=== PATIENT | male | born 1945 | race Caucasian/White ===

== ENCOUNTER → 2016-08-26 | Outpatient (CLI) | payer MEDICARE, BC | END | disposition home or self-care (01) | LOC: MW.CHPM 10:06 | PROVIDERS: ATTEND Anesthesiology | DX: Z51.81 Encounter for therapeutic drug level monitoring (principal); F11.20 Opioid dependence, uncomplicated; M33.20 Polymyositis, organ involvement unspecified; G89.29 Other chronic pain; Z79.891 Long term (current) use of opiate analgesic | CPT/HCPCS: 80305; 99214 ==

== ENCOUNTER 2022-11-10 09:47 | Inpatient (IN) | payer MEDICARE, BC ==
[2022-11-10] MEDS ORDERED: Sodium Chloride 0.9% 1,000 ML IV ONE (10:13)
[2022-11-10] MEDS ORDERED: Famotidine 20 MG/2 ML SDV IVPUSH ONE (10:14)
[2022-11-10 10:24] LABS: BASOPHILS PERCENT AUTO 0.3 % (0.0-1.5); EOSINOPHILS ABSOLUTE AUTO 0.1 K/uL (0.0-0.7); EOSINOPHILS PERCENT AUTO 0.6 % (0.0-7.0); HEMATOCRIT 44.4 % (38.0-50.0); HEMOGLOBIN 16.1 g/dL (13.0-17.0); LYMPHOCYTES ABSOLUTE AUTO 1.8 K/uL (0.6-2.4); LYMPHOCYTES PERCENT AUTO 17.7 % (16.0-40.0); MEAN CORPUSCULAR HEMOGLOBIN 29.4 pg (27.0-32.0); MEAN CORPUSCULAR HGB CONC 36.3 g/dL (31.0-37.0); MEAN CORPUSCULAR VOLUME 81.2 fL (80.0-98.0); MONOCYTES ABSOLUTE AUTO 1.1 K/uL (0.0-0.8); MONOCYTES PERCENT AUTO 10.5 % (0.0-15.0); NEUTROPHILS ABSOLUTE AUTO 7.2 K/uL (1.4-5.7); NEUTROPHILS PERCENT AUTO 70.9 % (48.0-80.0); PLATELET COUNT,PLT 280 K/uL (150-400); RED BLOOD CELL COUNT 5.47 M/uL (4.50-5.90); WHITE BLOOD CELL COUNT,WBC 10.21 K/uL (4.0-11.0)
[2022-11-10 10:49] LABS: A/G RATIO 1.1 (0.9-1.6); ALBUMIN 4.6 g/dL (3.4-5.0); BILIRUBIN TOTAL 1.2 mg/dL (0.2-1.0); CALCIUM 10.1 mg/dL (8.5-10.1); CARBON DIOXIDE,CO2 16.8 mmol/L (21.0-32.0); CREATININE 1.7 mg/dL (0.8-1.3); EST CRCL DRUG DOSING (CG) 35.76 mL/min; MAGNESIUM 1.9 mg/dL (1.8-2.4); POTASSIUM,K 3.7 mmol/L (3.5-5.1); PROTEIN TOTAL,TP 8.9 g/dL (6.4-8.2)
[2022-11-10 10:52] LABS: LACTIC ACID 1.3 mmol/L (0.4-2.0)
[2022-11-10 12:13] LABS: APPEARANCE,URINE CLEAR; GLUCOSE,URINE NEGATIVE (NEGATIVE); KETONES,URINE >=80 mg/dL (NEGATIVE); LEUKOCYTE ESTERASE,URINE NEGATIVE (NEGATIVE); NITRITE,URINE NEGATIVE (NEGATIVE); OCCULT BLOOD,URINE SMALL (NEGATIVE); PROTEIN,URINE 30 mg/dL (NEGATIVE); UROBILINOGEN,URINE 0.2 EU/dL (<2.0)
[2022-11-10 12:22] LABS: BILIRUBIN,URINE MODERATE (NEGATIVE); COLOR,URINE DARK YELLOW
[2022-11-10 12:29] LABS: BACTERIA,URINE RARE (NEGATIVE); EPITHELIAL CELLS,URINE OCCASIONAL (NONE-FEW); HYALINE CASTS,URINE 0-2 (0-2/LPF); RBC,URINE 0-2 (0-2/HPF); WBC,URINE 0-1 (0-5/HPF)
[2022-11-10] MEDS ORDERED: Alum Hydro/Mag Hydro/Simeth XS 15 ML, Lidocaine 2% 5 ML PO ONE ×2 (12:43)
[2022-11-10] MEDS ORDERED: Sucralfate Suspension 1 GM/10 ML Cup PO ONE (12:43)
[2022-11-10] MEDS ORDERED: Acetaminophen 325 MG Tab PO PRN (12:49)
[2022-11-10] MEDS ORDERED: Sodium Chloride 0.9% 10 ML Syringe FLUSH PRN (12:49)
[2022-11-10] MEDS ORDERED: Promethazine 25 MG Tab PO PRN (12:49)
[2022-11-10] MEDS ORDERED: Albuterol/Ipratropium 3.0-0.5 MG/3 ML Neb Soln NEB PRN (12:49)
[2022-11-10] MEDS ORDERED: Sodium Chloride 0.9% 2.5 ML Syringe FLUSH PRN (12:49)
[2022-11-10] MEDS ORDERED: Ondansetron 4 MG/2 ML SDV IVPUSH PRN (12:49)
[2022-11-10] MEDS ORDERED: Sodium Chloride 0.9% 20 ML SDV IV PRN (12:49)
[2022-11-10] MEDS ORDERED: Polyethylene Glycol 3350 Powder 17 GM Packet PO PRN (12:49)
[2022-11-10] MEDS ORDERED: [UNRECOGNIZED DRUG - OTHER] PO ONE ×2 (13:01)
[2022-11-10 13:17] LABS: CREATININE,URINE RAND 142.7 mg/dL; POTASSIUM,URINE RANDOM 29.5 mmol/L
[2022-11-10 13:18] LABS: MAGNESIUM 1.9 mg/dL (1.8-2.4); PHOSPHORUS 3.2 mg/dL (2.6-4.7)
[2022-11-10 13:28] LABS: TSH ULTRASENSITIVE 2.6 uIU/mL (0.36-3.74); URIC ACID 8.1 mg/dL (2.6-7.2)
[2022-11-10 16:54] LABS: CALCIUM 8.9 mg/dL (8.5-10.1); CARBON DIOXIDE,CO2 19.2 mmol/L (21.0-32.0); CREATININE 1.5 mg/dL (0.8-1.3); EST CRCL DRUG DOSING (CG) 40.53 mL/min; POTASSIUM,K 3.9 mmol/L (3.5-5.1)
[2022-11-10] MEDS: Sodium Chloride 0.9% 1,000 ML IV SCH (18:16)
[2022-11-10] MEDS: Pantoprazole 40 MG in Sodium Chloride 0.9% 10 ML IVPUSH SCH (21:14)
[2022-11-10 21:59] LABS: CALCIUM 9.1 mg/dL (8.5-10.1); CARBON DIOXIDE,CO2 18.7 mmol/L (21.0-32.0); CREATININE 1.5 mg/dL (0.8-1.3); EST CRCL DRUG DOSING (CG) 40.53 mL/min; POTASSIUM,K 3.8 mmol/L (3.5-5.1)
[2022-11-11 02:41] LABS: CARBON DIOXIDE,CO2 18.3 mmol/L (21.0-32.0); CREATININE 1.4 mg/dL (0.8-1.3); EST CRCL DRUG DOSING (CG) 43.43 mL/min; POTASSIUM,K 3.7 mmol/L (3.5-5.1)
[2022-11-11] MEDS: Sodium Chloride 0.9% 1,000 ML IV SCH (04:06)
[2022-11-11 07:17] LABS: HEMATOCRIT 34.7 % (38.0-50.0); HEMOGLOBIN 12.4 g/dL (13.0-17.0); MEAN CORPUSCULAR HEMOGLOBIN 29.2 pg (27.0-32.0); MEAN CORPUSCULAR HGB CONC 35.7 g/dL (31.0-37.0); MEAN CORPUSCULAR VOLUME 81.8 fL (80.0-98.0); PLATELET COUNT,PLT 201 K/uL (150-400); RED BLOOD CELL COUNT 4.24 M/uL (4.50-5.90); WHITE BLOOD CELL COUNT,WBC 5.75 K/uL (4.0-11.0)
[2022-11-11 07:35] LABS: CALCIUM 8.9 mg/dL (8.5-10.1); CARBON DIOXIDE,CO2 19.6 mmol/L (21.0-32.0); CREATININE 1.3 mg/dL (0.8-1.3); EST CRCL DRUG DOSING (CG) 46.77 mL/min; POTASSIUM,K 3.5 mmol/L (3.5-5.1)
[2022-11-11] MEDS ORDERED: oxyCODONE 5 MG Tab PO SCH (08:15)
[2022-11-11] MEDS: Sucralfate 1 GM Tab PO SCH ×2 (08:31→12:06)
[2022-11-11] MEDS: Pantoprazole 40 MG in Sodium Chloride 0.9% 10 ML IVPUSH SCH (08:51)
[2022-11-11] MEDS ORDERED: oxyCODONE 5 MG Tab PO PRN (08:56)
[2022-11-11] MEDS ORDERED: Cyanocobalamin (Vitamin B12) 500 MCG Tab PO SCH (09:00)
[2022-11-11] MEDS ORDERED: Primidone 50 MG Tab PO SCH (09:00)
[2022-11-11] MEDS ORDERED: amLODIPine 5 MG Tab PO SCH (09:00)
[2022-11-11] MEDS ORDERED: Propranolol 20 MG Tab PO SCH (09:00)
[2022-11-11 12:35] LABS: CARBON DIOXIDE,CO2 20.9 mmol/L (21.0-32.0); CREATININE 1.4 mg/dL (0.8-1.3); EST CRCL DRUG DOSING (CG) 43.43 mL/min; POTASSIUM,K 3.5 mmol/L (3.5-5.1)
[2022-11-11] MEDS ORDERED: amLODIPine 2.5 MG Tab PO ONE (12:58)
[2022-11-11] MEDS ORDERED: amLODIPine 5 MG Tab PO ONE (13:15)
[2022-11-11] MEDS ORDERED: Doxazosin 2 MG Tab PO SCH (21:00)
== END 2022-11-11 14:30 | disposition home or self-care (01) | DRG 641 ==
LOC: MW.ED 09:47 → MW.MS 12:54
PROVIDERS: ADMIT Internal Medicine; ATTEND Internal Medicine
DX: R10.13 Epigastric pain (principal); E86.0 Dehydration; I10 Essential (primary) hypertension; F13.20 Sedative, hypnotic or anxiolytic dependence, uncomplicated; M33.20 Polymyositis, organ involvement unspecified; F11.23 Opioid dependence with withdrawal; E87.1 Hypo-osmolality and hyponatremia; E87.8 Other disorders of electrolyte and fluid balance, not elsewhere classified; N18.2 Chronic kidney disease, stage 2 (mild); I12.9 Hypertensive chronic kidney disease with stage 1 through stage 4 chronic kidney disease, or unspecified chronic kidney disease; K21.9 Gastro-esophageal reflux disease without esophagitis; G62.9 Polyneuropathy, unspecified; F41.9 Anxiety disorder, unspecified; F32.A Depression, unspecified; D63.1 Anemia in chronic kidney disease; G89.29 Other chronic pain; K40.90 Unilateral inguinal hernia, without obstruction or gangrene, not specified as recurrent; Z85.46 Personal history of malignant neoplasm of prostate; Z98.890 Other specified postprocedural states; Z79.899 Other long term (current) drug therapy; Z88.5 Allergy status to narcotic agent; Z88.8 Allergy status to other drugs, medicaments and biological substances; Z91.148 Patient's other noncompliance with medication regimen for other reason
CPT/HCPCS: 36415; 71045; 74176; 80053; 81001; 82436; 82550; 82570; 83605; 83735 ×2; 84100; 84133; 84300; 84443; 84484; 84550; 85025; J3490; J7030; 76705; 76705-26; 80048; 82533; 83930; 83935; 84540; 85027; 87045; 87046; 87324; 87338; 87449; 87899; 93005; 96361; 96374; 99285-25; A9270-GY; C9113

== ENCOUNTER 2022-11-30 09:58 | Emergency (ER) | payer MEDICARE, BC ==
[2022-11-30] MEDS ORDERED: Sodium Chloride 0.9% 2.5 ML Syringe FLUSH PRN (10:25)
[2022-11-30] MEDS ORDERED: Sodium Chloride 0.9% 10 ML Syringe FLUSH PRN (10:25)
[2022-11-30 10:34] LABS: BASOPHILS ABSOLUTE AUTO 0.1 K/uL (0.0-0.1); BASOPHILS PERCENT AUTO 0.9 % (0.0-1.5); EOSINOPHILS ABSOLUTE AUTO 0.1 K/uL (0.0-0.7); EOSINOPHILS PERCENT AUTO 1.4 % (0.0-7.0); HEMOGLOBIN 11.8 g/dL (13.0-17.0); LYMPHOCYTES ABSOLUTE AUTO 1.7 K/uL (0.6-2.4); LYMPHOCYTES PERCENT AUTO 29.1 % (16.0-40.0); MEAN CORPUSCULAR HEMOGLOBIN 28.8 pg (27.0-32.0); MEAN CORPUSCULAR HGB CONC 34.7 g/dL (31.0-37.0); MEAN CORPUSCULAR VOLUME 82.9 fL (80.0-98.0); MONOCYTES ABSOLUTE AUTO 0.4 K/uL (0.0-0.8); MONOCYTES PERCENT AUTO 7.6 % (0.0-15.0); NEUTROPHILS ABSOLUTE AUTO 3.5 K/uL (1.4-5.7); NRBC ABSOLUTE 0 K/uL; PLATELET COUNT,PLT 193 K/uL (150-400)
[2022-11-30] MEDS ORDERED: Sucralfate Suspension 1 GM/10 ML Cup PO ONE (10:39)
[2022-11-30] MEDS ORDERED: Aluminum Hydroxide/Magnesium Hydroxide/Simethicone XS Susp 30 ML Cup PO ONE (10:39)
[2022-11-30] MEDS ORDERED: Morphine 4 MG/ML Syringe IVPUSH ONE (10:39)
[2022-11-30] MEDS ORDERED: HYDROmorphone 1 MG/ML Syringe IVPUSH ONE (10:40)
[2022-11-30 11:01] LABS: ALBUMIN 3.2 g/dL (3.4-5.0); BILIRUBIN TOTAL 0.4 mg/dL (0.2-1.0); CALCIUM 8.5 mg/dL (8.5-10.1); CARBON DIOXIDE,CO2 28.5 mmol/L (21.0-32.0); CREATININE 1.5 mg/dL (0.8-1.3); EST CRCL DRUG DOSING (CG) 37.81 mL/min; POTASSIUM,K 3.5 mmol/L (3.5-5.1); PROTEIN TOTAL,TP 6.4 g/dL (6.4-8.2)
== END 2022-11-30 11:31 | disposition home or self-care (01) ==
LOC: MW.ED 09:58
DX: R10.13 Epigastric pain (principal); I12.9 Hypertensive chronic kidney disease with stage 1 through stage 4 chronic kidney disease, or unspecified chronic kidney disease; N18.30 Chronic kidney disease, stage 3 unspecified; Z79.899 Other long term (current) drug therapy
CPT/HCPCS: 36415; 80053; 83690; 83735; 85025; 96374; 99284; A9270; J1170

== ENCOUNTER 2022-12-09 10:06 | Day surgery (SDC) | payer MEDICARE, BC ==
[~2022-12-09 10:06] MED LIST: Lactated Ringers 1,000 ML IV SCH
[2022-12-09] MEDS ORDERED: Lidocaine 2% 5 ML SDV ONE (13:25)
[2022-12-09] MEDS ORDERED: Propofol 200 MG/20 ML SDV ONE (13:25)
[2022-12-09] MEDS ORDERED: Lactated Ringers 1,000 ML IV SCH (14:15)
== END 2022-12-09 14:50 | disposition home or self-care (01) ==
LOC: MW.SDS 10:06
PROVIDERS: ATTEND Surgery
DX: K29.50 Unspecified chronic gastritis without bleeding (principal); K31.7 Polyp of stomach and duodenum; K64.9 Unspecified hemorrhoids; K22.89 Other specified disease of esophagus; D51.0 Vitamin B12 deficiency anemia due to intrinsic factor deficiency; M54.50 Low back pain, unspecified; G89.29 Other chronic pain; M15.9 Polyosteoarthritis, unspecified; G47.00 Insomnia, unspecified; M33.20 Polymyositis, organ involvement unspecified; K21.9 Gastro-esophageal reflux disease without esophagitis; I12.9 Hypertensive chronic kidney disease with stage 1 through stage 4 chronic kidney disease, or unspecified chronic kidney disease; N18.30 Chronic kidney disease, stage 3 unspecified; F41.9 Anxiety disorder, unspecified; F32.A Depression, unspecified; G62.9 Polyneuropathy, unspecified; Z88.5 Allergy status to narcotic agent; Z86.010 Personal history of colon polyps; Z87.19 Personal history of other diseases of the digestive system; Z88.8 Allergy status to other drugs, medicaments and biological substances; Z79.899 Other long term (current) drug therapy; Z87.891 Personal history of nicotine dependence; Z90.79 Acquired absence of other genital organ(s)
CPT/HCPCS: 43239; 45378; J2704; J7120; 00813; 99100; J3490